=== PATIENT | male | born 1960 | race Caucasian/White ===

== ENCOUNTER → 2017-12-04 | Outpatient (CLI) | payer BC | END | disposition home or self-care (01) | LOC: LABWHC1 15:37 | PROVIDERS: ATTEND Orthopaedic Surgery | DX: Z01.812 Encounter for preprocedural laboratory examination (principal) | CPT/HCPCS: 87070 ==

== ENCOUNTER → 2017-12-12 | Outpatient (CLI) | payer BC ==
[2017-12-12 16:34] LABS: ALT 35 U/L (21-72); AST 33 U/L (17-59); Albumin 4.3 g/dL (3.5-5.0); Alkaline Phosphatase 85 U/L (38-126); Anion Gap 11 mmol/L; Blood Urea Nitrogen 12 mg/dL (9-20); Calcium 9.4 mg/dL (8.4-10.2); Carbon Dioxide 31 mmol/L (22-30); Chloride 101 mmol/L (98-107); Glucose 83 mg/dL (74-99); Potassium 4.3 mmol/L (3.5-5.1); Sodium 143 mmol/L (137-145)
[2017-12-12 18:41] LABS: Basophils % (A) 1 %; Eosinophils # (A) 0.1 k/uL (0-0.7); Eosinophils % (A) 2 %; HCT 41.9 % (39.0-53.0); HGB 14.1 gm/dL (13.0-17.5); Lymphocytes # (A) 1.4 k/uL (1.0-4.8); Lymphocytes % (A) 26 %; MCHC 33.7 g/dL (31.0-37.0); MCV 103.9 fL (80.0-100.0); Macrocytosis Slight; Mean Platelet Volume 8.4; Monocytes # (A) 0.3 k/uL (0-1.0); Monocytes % (A) 6 %; Neutrophils # (A) 3.5 k/uL (1.3-7.7); Neutrophils % (A) 64 %; Platelet Count 180 k/uL (150-450); RBC 4.03 m/uL (4.30-5.90); RDW 12.7 % (11.5-15.5); WBC 5.5 k/uL (3.8-10.6)
== END | disposition home or self-care (01) ==
LOC: LABPAT 16:04
PROVIDERS: ATTEND Orthopaedic Surgery
DX: Z01.812 Encounter for preprocedural laboratory examination (principal); M16.11 Unilateral primary osteoarthritis, right hip
CPT/HCPCS: 36415; 80053; 85025; 86850; 86900; 86901

== ENCOUNTER 2017-12-22 05:35 | Inpatient (IN) | payer BC ==
[2017-12-11 12:56] VITALS: BMI 23.7
--- NOTE | 2017-12-21 13:32 | HP ---
HISTORY AND PHYSICAL REASON FOR ADMISSION: Surgery scheduled for 12/22/2017 HISTORY OF PRESENT ILLNESS: Pedro Gonzales is a 57-year-old patient seen with symptomatic right hip osteoarthritis. After having treatment options discussed, he elected to proceed with direct anterior right total hip arthroplasty. Consent regarding the procedure was obtained. Medical clearance was provided by Dr. Cristian Valero. PAST MEDICAL HISTORY: Hypertension. PAST SURGICAL HISTORY: Noncontributory. MEDICATIONS: Vergas. ALLERGIES: None reported. SOCIAL HISTORY: The patient smokes cigarettes daily. PHYSICAL EXAMINATION: Physical evaluation of the right hip, there is very limited range of motion with severe pain, diffuse tenderness. Positive hip impingement sign. Straight leg raise is negative. Right lower extremity is approximately 1 inch shorter than left. Distal neurovascular exam intact. RADIOGRAPHS: Radiographs of the right hip reveals severe osteoarthritis. IMPRESSION: 1. Right hip osteoarthritis. 2. Hypertension. 3. Tobacco use. PLAN: Direct anterior right total hip arthroplasty. Surgery 12/22/2017. MMODL / IJN: [id number] /
[~2017-12-22 05:35] MED LIST: ACETAMINOPHEN TAB 500 MG TAB PO ONE; MELOXICAM 7.5 MG TAB PO ONE; TRANEXAMIC ACID 1,000 MG in SODIUM CHLORIDE 0.9% 50 ML IVPB ONE; ceFAZolin IN SWFI 2 GM/20 ML SYRINGE IVP ONE
[2017-12-22] MEDS ORDERED: DEXAMETHASONE SOD PHOSPHATE 10 MG/ML 1 ML VIAL IV ONE (06:05)
[2017-12-22] MEDS ORDERED: LIDOCAINE 1% 20 ML VIAL (10MG/ML) FOR IV START INTRADERMA PRN (06:05)
[2017-12-22] MEDS ORDERED: MIDAZOLAM 2 MG/2 ML VIAL IV PRN (06:05)
[2017-12-22] MEDS ORDERED: MORPHINE SULFATE 4 MG/ML SYRINGE IV PRN (06:05)
[2017-12-22] MEDS ORDERED: ONDANSETRON 4 MG/2 ML VIAL IVP ONE (06:05)
[2017-12-22] MEDS ORDERED: LACTATED RINGERS 1,000 ML IV SCH (06:05)
[2017-12-22] MEDS ORDERED: ROPIVACAINE 246.25 MG, EPINEPHrine 0.5 MG, KETOROLAC 30 MG, cloNIDine HCL/PF 80 MCG, WA... MISCELLANE ONE ×5 (07:23)
[2017-12-22] MEDS ORDERED: fentaNYL (PF) 50 MCG/ML 2 ML AMP ONE (07:28)
[2017-12-22] MEDS ORDERED: TRANEXAMIC ACID 1,000 MG/10 ML VIAL ONE (07:28)
[2017-12-22] MEDS ORDERED: LIDOCAINE 1% INJ 10MG/ML (20 ML MDV) ONE (07:28)
[2017-12-22] MEDS ORDERED: MIDAZOLAM 2 MG/2 ML VIAL ONE (07:28)
[2017-12-22] MEDS ORDERED: PHENYLEPHRINE-0.9% NACL SYG 1 MG/10 ML SYRINGE ONE (07:28)
[2017-12-22] MEDS ORDERED: SODIUM CHLORIDE 0.9% 100 ML BAG ONE (07:28)
[2017-12-22] MEDS ORDERED: PROPOFOL 10 MG/ML 20 ML VIAL IV ONE (07:28)
[2017-12-22] MEDS ORDERED: LACTATED RINGERS 1,000 ML IV ONE (08:55)
[2017-12-22] MEDS ORDERED: NALOXONE 0.4 MG/ML 1 ML VIAL IV PRN (09:27)
[2017-12-22] MEDS ORDERED: HYDROcodone/APAP 7.5-325MG 1 EACH TAB PO PRN (09:27)
[2017-12-22] MEDS ORDERED: HYDROmorphone 1 MG/ML 1 ML SYRINGE IVP PRN (09:27)
[2017-12-22] MEDS ORDERED: hydrOXYzine PAMOATE 25 MG CAP PO PRN (09:27)
[2017-12-22] MEDS ORDERED: ONDANSETRON 4 MG/2 ML VIAL IVP PRN (09:27)
[2017-12-22] MEDS ORDERED: HYDROmorphone 0.5 MG/0.5 ML SYRINGE IVP PRN (09:27)
--- NOTE | 2017-12-22 09:27 | P.OP ---
Date of Procedure: 12/22/17 Preoperative Diagnosis: Right hip osteoarthritis Postoperative Diagnosis: Right hip osteoarthritis Procedure(s) Performed: Direct anterior right total hip arthroplasty Implants: 1. Depuy Corail KA size 14 standard collar pressfit femoral stem 2. Depuy pinnacle 64 mm press-fit acetabular shell 3. Depuy pinnacle +4 neutral polyethylene acetabular liner 36 mm ID 64 mm OD 4. Biolox delta ceramic femoral head +12 36 mm Anesthesia: local, spinal Surgeon: Scott Parish Estimated Blood Loss (ml): 250 Pathology: other (Femoral head) Condition: stable Disposition: PACU Indications for Procedure: 57-year-old patient seen with symptomatic right hip osteoarthritis. After treatment options were discussed, he elected to proceed with total hip arthroplasty. Operative Findings: see description of procedure Description of Procedure: The patient was taken to the operative suite. Patient underwent a spinal anesthetic by the department of anesthesia. Patient was then transferred to the [place] table. Patient was given preoperative IV antibiotics and TXA. Both lower extremities were placed in standard leg spars. The hip was then prepped and draped in the normal sterile orthopedic fashion. A standard anterior incision was made beginning 3 cm lateral and 1 cm distal to the ASIS extending 10 cm. Dissection was then carried down through the subcutaneous soft tissues down to the fascia overlying the tensor fascia kelvin. An incision was now made through the fascia. Careful dissection was taken down exposing the tensor fascia kelvin muscle. A Cobra retractor was now placed along the medial femoral neck and a second one along the lateral femoral neck. The venous circumflex vessels were now identified, cauterized and clipped. We identified the anterior hip capsule. An incision was made through the hip capsule along the lateral border. Tag sutures were then placed along the anterior capsule and lateral capsule. We then performed a capsulotomy. Retractors were now placed around the femoral neck itself. A Cobra retractor was now placed along the anterior acetabulum. Good exposure was now noted of the femoral head/neck complex. Residual labrum was debrided out. We placed the extremity into 3 turns of fine traction. We were then able to introduce a skid in between the femoral head and acetabulum. A placed a awl into the femoral head. We took 2 turns of traction off the extremity. Rotation was now released. The femoral head was then dislocated without difficulty. Additional releasing was performed of the capsule. The head was then reduced. All traction was released. A femoral neck cut was now made with a sagittal saw. It was completed with an osteotome at the lateral neck area. The femoral head was now removed without difficulty. The extremity was now rotated to 60 of external rotation. It was locked in position. Residual labrum was now debrided out. Serial reaming was performed of the acetabulum. Once we reached the appropriate size and a trial was position and fit nicely. The appropriate size was now chosen opened and made available. The wound was irrigated with pulse lavage mechanical irrigation. The acetabular shell was introduced into the acetabulum without difficulty. The C-arm/fluoroscopy was now brought into the operative field. We made sure we had a true AP pelvic view. We now under direct C-arm/fluoroscopy introduced into the acetabular component with appropriate version and inclination. It was well seated and stable. The C-arm was pulled back. An appropriate liner was introduced and clicked into position. It was felt to be stable. At this point retractors were removed. The extremity was now placed into 120 external rotation with no traction. The leg was now dropped to the ground and adducted. Appropriate retractors were now positioned along the proximal femur. We also placed our femoral look into position. Additional capsular releasing was performed to gain access to the proximal femur. We now used a box osteotome. A canal finder was now utilized. Serial broaching was now performed until we reached the appropriate size with good overall rotational stability. Appropriate calcar planing was performed. A trial head/neck was placed into position. The hip was now reduced. The C-arm /fluoroscopy was brought back into the operative field. A spot film was obtained of the nonoperative hip. A spot film was obtained of the trial components. The extremity seemed short with of the significant ligament discrepancy. I dislocated the hip. I removed her standard polyethylene liner and placed and a +4 liner. I now placed a new trial head neck. The hip was reduced. The C-arm was brought into the operative field. We again obtained a spot film. Overlays were performed, we noted good overall alignment and positioning for determining leg length. The C-arm/fluoroscopy was pulled back. Retractors were repositioned and the hip was dislocated. The leg was again taken down to the ground and adducted. Appropriate retractors were repositioned as well as the femoral hook. All trial components were removed. The wound was irrigated with pulse lavage mechanical irrigation. The deep soft tissues were infiltrated local analgesic. The femoral implant was opened along with the femoral head. The femoral implant was introduced with good purchase and fixation noted. The femoral head was introduced with good positioning and fixation noted. Retractors were now removed. The hip was now reduced. There appeared be good positioning of the hip. A spot film was obtained intraoperatively to document this. Bipolar cautery had been utilized intermittently through the procedure for hemostasis. The wound was irrigated copiously with pulse lavage mechanical irrigation. A second gram of TXA was given. The fascia was repaired with Vicryl suture. The subcutaneous soft tissues were repaired in layers with Vicryl suture. The skin was approximated with pernio/Dermabond. Sterile dressings were applied. Patient was then awakened, transferred to a bed and taken to recovery in stable condition.
--- NOTE | 2017-12-22 10:29 | FL ---
Fluoroscopy HISTORY: Right hip arthroplasty 23 seconds fluoroscopy time supplied to the referring clinician. 1 intraoperative C-arm images docum ent the procedure. See dictated report from orthopedic surgery.
[2017-12-22] MEDS: HYDROmorphone 0.5 MG/0.5 ML SYRINGE IVP PRN ×3 (10:56→22:43)
--- NOTE | 2017-12-22 10:56 | XR ---
Limited right hip HISTORY: Right hip arthroplasty 1 intraoperative C-arm image documents the procedure
[2017-12-22] MEDS: LACTATED RINGERS 1,000 ML IV SCH ×2 (11:03→20:20)
--- NOTE | 2017-12-22 13:09 | CONS ---
CONSULTATION DATE OF CONSULTATION: 12/22/2017 REASON FOR CONSULTATION: Medical management requested by Dr. Parish. CONSULTATION: This is a 57-year-old patient of Dr. Valero who has undergone a right total hip arthroplasty. Postprocedure pain is controlled. No nausea or vomiting. No chest pain. The patient denies any cardiac history. Did tolerate his breakfast. Patient's daughter at the bedside. Chronic stable medical conditions include osteoarthritis that also includes his right knee and other joints. constipation and patient has been losing weight by eating healthy and patient also is nicotine dependence/smoker. REVIEW OF SYSTEMS: CONSTITUTIONAL: None. HEENT: None. RESPIRATORY: None. CARDIOVASCULAR: None. GASTROINTESTINAL: As above. GENITOURINARY: None. MUSCULOSKELETAL: Arthritic pain in joints including right knee. DERMATOLOGICAL: None. HEMATOLOGIC: None. LYMPHATIC: None. PSYCHIATRY: None. NEUROLOGICAL: None. PAST MEDICAL HISTORY: Osteoarthritis, nicotine dependence, constipation, osteoarthritis. PAST SURGICAL HISTORY: Cardiac catheterization, colonoscopy. SOCIAL HISTORY: Patient lives with his son. Works in [employer]. Smokes less than a pack a day for over 20 years. FAMILY HISTORY: Family history of cancer, type unknown. HOME MEDICATIONS: [place] 5 one tablet p.o. t.i.d. p.r.n. ALLERGIES: None. PHYSICAL EXAMINATION: On examination, temperature 97.4, pulse 60, respiration 14, blood pressure 123/59, pulse ox 93% on room air. GENERAL APPEARANCE: Lying in bed, comfortable, awake. EYES: Pupils equal. Conjunctivae normal. HENT: External appearance of the nose and ears normal. Oral cavity normal. NECK: JVD not raised. Mass not palpable. RESPIRATORY: Effort normal. Lungs are clear. CARDIOVASCULAR: First and second sounds normal. No edema. ABDOMEN: Soft, nontender. Liver and spleen not palpable. LYMPHATIC: No lymph node palpable in the neck and axillae. PSYCHIATRY: Alert and oriented x3. Mood and affect normal. NEUROLOGICAL: Pupils equal. Cranial nerves grossly intact. Power and sensation grossly intact. MUSCULOSKELETAL: Dressing over the right hip. Some evidence of osteoarthritis in the knees. INVESTIGATIONS: Blood work from 12/12/2017 shows hemoglobin 14.1, platelets of 180. ASSESSMENT: 1. Right total hip arthroplasty. 2. Primary osteoarthritis especially of the knees. 3. Chronic constipation probably a side effect of pain medication/narcotic. 4. Chronic nicotine dependence, patient is a cigarette smoker. PLAN: Care was discussed the patient. The patient is careful about his diet. He is planning to probably get his knee assessed for surgery. The patient did take laxative of fiber for his constipation. The patient is counseled against smoking and will be given a nicotine patch. Care was discussed. Thank you, Dr. Parish. MARK / MELANY: [id number] /
[2017-12-22] MEDS: traMADol 50 MG TAB PO SCH ×3 (15:11→22:45)
[2017-12-22] MEDS: NICOTINE 14MG/24HR PATCH TRANSDERM SCH (15:25)
[2017-12-22] MEDS: ceFAZolin IN SWFI 2 GM/20 ML SYRINGE IVP SCH (15:29)
[2017-12-22 16:03] VITALS: RESP 16
[2017-12-22] MEDS: HYDROcodone/APAP 7.5-325MG 1 EACH TAB PO PRN (20:20)
[2017-12-22] MEDS ORDERED: SENNOSIDES-DOCUSATE SODIUM 1 EACH TAB PO SCH (21:00)
[2017-12-23] MEDS: ceFAZolin IN SWFI 2 GM/20 ML SYRINGE IVP SCH (00:49)
[2017-12-23] MEDS: HYDROcodone/APAP 7.5-325MG 1 EACH TAB PO PRN ×2 (03:30→12:32)
[2017-12-23] MEDS: traMADol 50 MG TAB PO SCH ×2 (07:49→12:37)
[2017-12-23] MEDS: NICOTINE 14MG/24HR PATCH TRANSDERM SCH (07:50)
[2017-12-23 08:04] LABS: Basophils % (A) 0 %; Eosinophils % (A) 0 %; HCT 34.8 % (39.0-53.0); HGB 11.7 gm/dL (13.0-17.5); Lymphocytes # (A) 0.7 k/uL (1.0-4.8); Lymphocytes % (A) 7 %; MCH 35.1 pg (25.0-35.0); MCHC 33.5 g/dL (31.0-37.0); MCV 104.8 fL (80.0-100.0); Macrocytosis Slight; Mean Platelet Volume 8.7; Monocytes # (A) 0.5 k/uL (0-1.0); Monocytes % (A) 6 %; Neutrophils # (A) 8.1 k/uL (1.3-7.7); Neutrophils % (A) 86 %; Platelet Count 146 k/uL (150-450); RBC 3.32 m/uL (4.30-5.90); RDW 12.9 % (11.5-15.5); WBC 9.4 k/uL (3.8-10.6)
[2017-12-23 08:22] VITALS: BP 124/71; PULSE 87; TEMP 97.9
[2017-12-23] MEDS ORDERED: ENOXAPARIN 40 MG/0.4 ML SYRINGE SQ SCH (09:00)
[2017-12-23] MEDS ORDERED: FAMOTIDINE 20 MG TAB PO SCH (09:00)
[2017-12-23] MEDS ORDERED: MELOXICAM 7.5 MG TAB PO SCH (09:00)
--- NOTE | 2017-12-23 10:46 | P.PN ---
Subjective Progress Note Date: 12/23/17 Principal diagnosis: Status post right total hip arthroplasty Patient seen today resting in his hospital bed, he appears comfortable. Exam bleeding well with therapy. He is urinating on his own. He denies any headaches, lightheadedness, chest pain or shortness of breath. Objective - Vital Signs Vital signs: Vital Signs Temp 97.9 F 12/23/17 07:45 Pulse 87 12/23/17 07:45 Resp 16 12/23/17 07:45 BP 124/71 12/23/17 07:45 Pulse Ox 96 12/23/17 07:45 Intake & Output 12/22/17 12/23/17 12/23/17 18:59 06:59 18:59 Intake Total 1000 1120 Output Total 250 Balance 750 1120 Weight 79.379 kg Intake: IV 1000 Intake, IV Titration 640 Amount Lactated Ringers 1,000 ml 640 @ 80 mls/hr IV .[id number] TALHA Rx#:[id number] Oral 480 Output: Estimated Blood Loss 250 Other: Voiding Method Toilet # Voids 3 3 - Exam Right lower extremity: Incision is clean, dry, and intact. The prineo tape is in good condition. There is minimal soft tissue swelling and ecchymosis surrounding the medial and lateral aspects of the incision. Calf is soft, no tenderness with palpation. Plantar flexion, dorsiflexion, EHL, FHL are intact. Sensory exam to light touch throughout the extremity is intact, dorsal pedis pulses 2+. - Labs CBC & Chem 7: 12/23/17 07:29 Labs: Abnormal Lab Results - Last 24 Hours (Table) 12/23/17 Range/Units 07:29 RBC 3.32 L (4.30-5.90) m/uL Hgb 11.7 L (13.0-17.5) gm/dL Hct 34.8 L (39.0-53.0) % MCV 104.8 H (80.0-100.0) fL MCH 35.1 H (25.0-35.0) pg Plt Count 146 L (150-450) k/uL Neutrophils # 8.1 H (1.3-7.7) k/uL Lymphocytes # 0.7 L (1.0-4.8) k/uL Assessment and Plan Plan: Assessment: 1. Postop day 1 status post right total hip arthroplasty Plan: Pain control, we'll discharge home on oral medication GI and DVT prophylaxis, utilizing aspirin 325 mg twice a day Home therapy and nursing after discharge Wound care instructions were discussed Medical recommendations Discharge planning: Patient will likely be discharged home today Time with Patient: Less than 30
[2017-12-23] MEDS: LACTATED RINGERS 1,000 ML IV SCH (10:57)
--- NOTE | 2017-12-23 14:11 | P.DS ---
Providers Date of admission: 12/22/17 05:35 Expected date of discharge: 12/23/17 Attending physician: Scott Parish Consults: 12/22/17 09:27 Consult Physician Routine Consulting Provider: Cristian Valero Consult Reason/Comments: Medical management Do you want consulting provider notified?: Yes 12/22/17 10:35 Consult Physician Routine Consulting Provider: Orestes Guadalupe Consult Reason/Comments: medical management Do you want consulting provider notified?: Yes Primary care physician: Cristian Valero [facility] Course: Date of admission: 12/22/2017 Date of discharge: 12/23/2017 Admission diagnosis: Status post right total hip arthroplasty Discharge diagnosis: Same Attending physician: Dr. Parish Surgical procedures: Right total hip arthroplasty Brief history: Patient is a 57-year-old male with a history of progressive primary right hip osteoarthritis. At this point patient has failed conservative treatment measures and has opted to proceed with a elective right total hip arthroplasty. Hospital course: Details of patient's surgery can be found in operative report. Patient tolerated the procedure well and was subsequently transported to orthopedic floor. Patient's orthopeidc and medical care was provided daily. Patient had daily laboratory tests performed for evaluation of overall blood counts. Patient had daily physical therapy to include strengthening range of motion as well as education with walker ambulation. Patient was treated with Lovenox for their postoperative DVT prophylaxis during their inpatient stay. Patient was noted to have a relatively uneventful postoperative course. Patient reported satisfactory pain control with oral pain medications by postoperative day 0. Patient showed satisfactory progress with physical therapy. Patient moved steadily through the program and had no difficulty meeting the goals by postoperative day 1. Given patient's otherwise satisfactory course and having met physical therapy goals, plan is to discharge patient home on postoperative day 1. Discharge condition/disposition: Patient will be discharged home in stable condition. Discharge medications: Instructions are given on resumption of patient's normal daily medications per primary care recommendation, in addition patient will be prescribed . Discharge instructions: 1. Wound care and infection precautions, keep incision dry and covered while showering, no lotions, creams, moisturizers. No soaking, tubs, pools, hottubs. Do not scrub over the incision. 2. Weight-bear as tolerated with walker / cane until follow-up. 3. Ice and elevate when necessary. Do not exceed 20 minutes per hour with ice pack. 4. Utilize compression sleeve until seen at first follow up appointment. 5. Visiting nursing care. 6. Home physical therapy 7. Pain meds and anticoagulants per prescription. 8. Pain medication has potential to cause constipation. Increase oral fluid and fiber intake. Contact primary care provider if you have not had a bowel movement within 48 hours after discharge 9. No anti-inflammatory medication until discussed at first post operative visit, this including Motrin, Aleve, Mobic, Diclofenac 10. Follow up in office at 2 weeks postop with Clyde Nesbitt PA-C 11. Follow up with your primary care doctor 7-10 days after discharge. 12. Contact [facility] with any questions, . Procedures: Right total hip arthroplasty Patient Condition at Discharge: Good Plan - Discharge Summary Discharge Rx Participant: Yes New Discharge Prescriptions: New Aspirin 325 mg PO BID #60 tab Docusate [Colace] 100 mg PO DAILY #30 capsule HYDROcodone/APAP 7.5-325MG [[place] 7.5] 1 - 2 each PO Q6HR PRN #60 tab PRN Reason: Pain traMADol HCl [Ultram] 50 mg PO Q6H PRN #40 tab PRN Reason: Pain Discharge Medication List Aspirin 325 mg PO BID #60 tab 12/23/17 [Rx] Docusate [Colace] 100 mg PO DAILY #30 capsule 12/23/17 [Rx] HYDROcodone/APAP 7.5-325MG [Elton 7.5] 1 - 2 each PO Q6HR PRN #60 tab 12/23/17 [ Rx] traMADol HCl [Ultram] 50 mg PO Q6H PRN #40 tab 12/23/17 [Rx] Follow up Appointment(s)/Referral(s): Cristian Valero MD [Primary Care Provider] - 12/30/17 4:30 pm Jamar Nesbitt PAC [PHYSICIAN [employer]] - 01/07/18 2:50 pm Patient Instructions/Handouts: Anterior Hip Replacement (DC) Activity/Diet/Wound Care/Special Instructions: [facility] - [phone] [facility] - [phone] - will deliver to bedside prior to discharge. Orthopedic Discharge Instructions: 1. Wound care and infection precautions, keep incision dry and covered while showering, no lotions, creams, moisturizers. No soaking, pools, hot tubs. Do not scrub over incision. 2. Weight-bear as tolerated with walker / cane until follow-up. 3. Ice and elevate when necessary. Do not exceed 20 minutes per hour with ice pack. 4. Utilize compression sleeve until seen at first follow up appointment. 5. Visiting nursing care. 6. Home physical therapy. 7. Pain meds and anticoagulants per prescription. 8. Pain medication has potential to cause constipation. Increase oral fluid and fiber intake. Contact primary care provider if you have not had a bowel movement within 48 hours after discharge. 9. No anti-inflammatory medication until discussed at first post operative visit, this including Motrin, Aleve, Mobic, Diclofenac. 10. Follow up in office at 2 weeks postop with Clyde Nesbitt PA-C 11. Follow up with your primary care doctor 7-10 days after discharge. 12. Contact [facility] with any questions, . Discharge Disposition: HOME WITH HOME HEALTH SERVICES
--- NOTE | 2017-12-23 23:48 | PN ---
PROGRESS NOTE DATE OF SERVICE: 12/23/2017 PRESENTING COMPLAINT: Right hip surgery. INTERVAL HISTORY: The patient is doing well. Pain is controlled. Did tolerate his meal. No nausea, vomiting, did work with Therapy. REVIEW OF SYSTEMS: Done for constitutional, cardiovascular, GI, pulmonary, musculoskeletal; relevant findings as above. CURRENT MEDICATIONS: Reviewed. EXAMINATION: Temperature 97.9, pulse 87, respirations 16, blood pressure 124/71, pulse ox 96% on room air. GENERAL APPEARANCE: Sitting up, comfortable. EYES: Pupils equal. Conjunctivae normal. HEENT: External appearance of nose and ears normal. Oral cavity normal. NECK: JVD not raised. Mass not palpable. RESPIRATORY: Effort normal. Lungs are clear. CARDIOVASCULAR: First and second sounds normal. No edema. ABDOMEN: Soft, nontender. Liver and spleen not palpable. PSYCHIATRY: Alert and oriented x3. Mood and affect were normal. INVESTIGATIONS: Hemoglobin 11.7. ASSESSMENT: 1. Right total hip arthroplasty. 2. Acute postoperative blood loss as blood loss anemia as expected from surgery. 3. Primary osteoarthritis, especially of the knees. 4. Chronic constipation, probably a side effect of pain medication/narcotics. 5. Chronic nicotine dependence in a cigarette smoking smoker. PLAN: Continue current medication and treatment plan. The patient may take [id number] iron supplements. MMODL / IJN: [id number] /
== END 2017-12-23 13:50 | disposition home health service (06) | DRG 470 ==
LOC: 2ORMAIN 05:35 → 3SUR 09:30
PROVIDERS: ADMIT Orthopaedic Surgery; ATTEND Orthopaedic Surgery
PROC: 0SR904A Replacement of Right Hip Joint with Ceramic on Polyethylene Synthetic Substitute, Uncemented, Open Approach (ICD-10-PCS; principal; 2017-12-22 07:30)
DX: M16.11 Unilateral primary osteoarthritis, right hip (principal); D62 Acute posthemorrhagic anemia; F17.210 Nicotine dependence, cigarettes, uncomplicated; I10 Essential (primary) hypertension; K59.03 Drug induced constipation; T40.605A Adverse effect of unspecified narcotics, initial encounter; M17.0 Bilateral primary osteoarthritis of knee; Z79.899 Other long term (current) drug therapy; Z80.9 Family history of malignant neoplasm, unspecified; Z82.49 Family history of ischemic heart disease and other diseases of the circulatory system; Y92.009 Unspecified place in unspecified non-institutional (private) residence as the place of occurrence of the external cause
CPT/HCPCS: 73501; 85025; 86850; 86900; 86901; 88300

== ENCOUNTER → 2020-02-22 | Outpatient (CLI) | payer BC ==
--- NOTE | 2020-02-22 10:15 | P.STRESS ---
- Stress Test Note Stress Test Results/Findings: Exam Performed: stress echo exercise with con Exam Date: 02/22/20 Reason for Exam: PALPITATIONS Height: 6 ft 1 in Weight: 80.739 kg Protocol: EXERCISE STRESS ECHO Stage: II Duration of Exercise: 6:00 Resting Heart Rate: 97 Resting Blood Pressure: 137/63 Maximum Achieved Heart Rate: 148 Maximum Achieved Blood Pressure: 207/84 85% PMHR: 138 100% PMHR: 162 METS: 7.1 Technologist Comment: Stress Test Results/Findings: This is a 59-year-old gentleman with history of hypertension, family history of ischemic heart disease. Smoking who is being evaluated for symptoms of shortness of breath and palpitations. Stress data Baseline EKG showed sinus rhythm with normal MA and QRS QRS duration. Occasional PVCs were noted. Patient blood pressure at rest is 137/63 with pulse rate of 97. Patient walked on the Shaq protocol for about 6 minutes achieving a maximum heart rate of 148 with a blood pressure of 207/84 at peak. EKGs taken during and after x-ray did not reveal any changes of ischemia. Patient continued to have frequent PVCs and post x-rays.. The test was stopped because of fatigue and also 85%. Heart rate was achieved. No complaints of chest pain. Echo data: Baseline echo images showed normal wall motion and thickening. Exercise echo images showed generalized hypokinesia with ejection fraction dropping to probably about 45%, compared to normal ejection fraction at rest. In the post x-rays. There appears to be normal wall motion and thickening. Final impression #1. Negative stress test #2. Abnormal stress echo. With deterioration in LV function with generalized hypokinesia with stress. This could be related to hypertensive response to exercise, although triple-vessel disease needs to be ruled out. #3. Patient did not experience any chest pain. #4. Patient may need further evaluation
== END | disposition home or self-care (01) ==
LOC: RADNMMAIN 08:56
PROVIDERS: ATTEND Family Medicine
DX: R00.2 Palpitations (principal)
CPT/HCPCS: 93351; Q9950

== ENCOUNTER → 2020-10-13 | Outpatient (CLI) | payer BC ==
[2020-10-13 23:18] LABS: Basophils # (A) 0.06 X 10*3/uL (0.00-0.10); Basophils % (A) 0.9 %; Eosinophils # (A) 0.09 X 10*3/uL (0.04-0.35); Eosinophils % (A) 1.4 %; Lymphocytes # (A) 2.08 X 10*3/uL (0.90-5.00); Lymphocytes % (A) 32.7 %; MCH 35.4 pg (27.0-32.0); MCHC 34.1 g/dL (32.0-37.0); MCV 103.5 fL (80.0-97.0); Mean Platelet Volume 11.3 fL (9.5-12.2); Monocytes # (A) 0.52 X 10*3/uL (0.20-1.00); Monocytes % (A) 8.2 %; Neutrophils % (A) 56.6 %; Platelet Count 161 X 10*3/uL (140-440); RBC 3.96 X 10*6/uL (4.40-5.60); RDW 12.6 % (11.5-14.5); WBC 6.36 X 10*3/uL (4.50-10.00)
[2020-10-14 01:19] LABS: Hemoglobin A1C 5.3 % (4.0-6.0)
[2020-10-14 03:38] LABS: Albumin 4.5 g/dL (3.80-4.90); Albumin/Globulin Ratio 2.14 (1.60-3.17); BUN/Creat Ratio 12.22 Ratio (12.00-20.00); Chol/HDL Ratio 1.93; Globulin 2.1 g/dL (1.6-3.3); LDL Cholesterol,Calculated 49.6 mg/dL (0.0-131.0); Non-African American GFR(CKD) 93.2 (60.0-200.0); Potassium 4.4 mmol/L (3.5-5.5); Total Bilirubin 1.6 mg/dL (0.2-1.2); Total Protein 6.6 g/dL (6.2-8.2); VLDL Calculation 13.4 mg/dL (5.00-40.00)
== END | disposition home or self-care (01) ==
LOC: LABWHC1 14:49
PROVIDERS: ATTEND Family Medicine
DX: Z00.00 Encounter for general adult medical examination without abnormal findings (principal); Z12.5 Encounter for screening for malignant neoplasm of prostate; E78.5 Hyperlipidemia, unspecified
CPT/HCPCS: 80061; 80053; 82550; 84443; 85025; 83036; 36415; G0103

== ENCOUNTER → 2020-10-16 | Outpatient (CLI) | payer BC ==
[2020-10-16 15:39] LABS: Cholesterol 151 mg/dL (0-200); Triglycerides <50.0 mg/dL (0.0-149.0)
== END | disposition home or self-care (01) ==
LOC: LABWHC1 09:23
PROVIDERS: ATTEND Nurse Practitioner Adult Health
DX: E78.5 Hyperlipidemia, unspecified (principal)
CPT/HCPCS: 36415; 80061

== ENCOUNTER 2021-05-25 02:23 | Emergency (ER) | payer BC ==
[2021-05-25] MEDS ORDERED: SODIUM CHLORIDE 0.9% 1,000 ML IV STA ×2 (02:56)
[2021-05-25] MEDS ORDERED: KETOROLAC 15 MG/ML 1 ML VIAL IVP STA (02:56)
[2021-05-25] MEDS ORDERED: ACETAMINOPHEN TAB 500 MG TAB PO STA (02:56)
[2021-05-25] MEDS ORDERED: DEXAMETHASONE SOD PHOSPHATE 10 MG/ML 1 ML VIAL IVP STA (02:56)
[2021-05-25] MEDS ORDERED: ALBUTEROL HFA INHALER INHALATION STA (02:56)
--- NOTE | 2021-05-25 02:57 | ED ---
SOB HPI - General Chief Complaint: Shortness of Breath Stated Complaint: Difficulty Breathing, Covid+ Time Seen by Provider: 05/25/21 02:55 Source: patient, RN notes reviewed, old records reviewed Mode of arrival: ambulatory Limitations: no limitations - History of Present Illness Initial Comments: This is a 60-year-old male presented today for evaluation of known positive coronavirus. Patient has some chest pain weakness and shortness of breath. She has no history of coronavirus and has difficulty breathing just prior to arrival. No current chest pain positive for fevers positive bodyaches MD Complaint: shortness of breath, cough, chest pain, pain with inspiration, anxiety -: days(s) Severity: severe Severity scale (1-10): 8 Consistency: constant Improves With: oxygen, rest Worsens With: exertion, movement Known History Of: COPD Context: recent URI, recent illness Associated Symptoms: chest pain, pain with inspiration, fever, cough Treatments Prior to Arrival: none - Related Data Previous Rx's Medication Instructions Recorded Aspirin 325 mg PO BID #60 tab 12/23/17 Docusate [Colace] 100 mg PO DAILY #30 capsule 12/23/17 HYDROcodone/APAP 7.5-325MG [[place] 1 - 2 each PO Q6HR PRN #60 tab 12/23/17 7.5] traMADol HCl [Ultram] 50 mg PO Q6H PRN #40 tab 12/23/17 Allergies Allergy/AdvReac Type Severity Reaction Status Date / Time No Known Allergies Allergy Verified 05/25/21 02:40 Review of Systems ROS Statement: Those systems with pertinent positive or pertinent negative responses have been documented in the HPI. ROS Other: All systems not noted in ROS Statement are negative. Past Medical History Past Medical History: Hypertension, Osteoarthritis (OA) History of Any Multi-Drug Resistant Organisms: None Reported Past Surgical History: Heart Catheterization, Joint Replacement, Orthopedic Surgery Additional Past Surgical History / Comment(s): COLONOSCOPY Past Anesthesia/Blood Transfusion Reactions: No Reported Reaction Past Psychological History: No Psychological Hx Reported Smoking Status: Current every day smoker Past Alcohol Use History: Occasional Past Drug Use History: None Reported - Past Family History Father Family Medical History: Cancer General Exam Limitations: no limitations General appearance: alert, in no apparent distress Head exam: Present: atraumatic, normocephalic, normal inspection Eye exam: Present: normal appearance, PERRL, EOMI. Absent: scleral icterus, conjunctival injection, periorbital swelling ENT exam: Present: normal exam, mucous membranes moist Neck exam: Present: normal inspection. Absent: tenderness, meningismus, lymphadenopathy Respiratory exam: Present: normal lung sounds bilaterally. Absent: respiratory distress, wheezes, rales, rhonchi, stridor Cardiovascular Exam: Present: regular rate, normal rhythm, normal heart sounds. Absent: systolic murmur, diastolic murmur, rubs, gallop, clicks GI/Abdominal exam: Present: soft, normal bowel sounds. Absent: distended, tenderness, guarding, rebound, rigid Extremities exam: Present: normal inspection, full ROM, normal capillary refill. Absent: tenderness, pedal edema, joint swelling, calf tenderness Back exam: Present: normal inspection Neurological exam: Present: alert, oriented X3, CN II-XII intact Psychiatric exam: Present: normal affect, normal mood Skin exam: Present: warm, dry, intact, normal color. Absent: rash Course Vital Signs 05/25/21 05/25/21 05/25/21 02:36 03:00 03:40 Temperature 98.6 F Pulse Rate 104 H 76 Respiratory 24 25 H 16 Rate Blood Pressure 111/74 113/69 O2 Sat by Pulse 97 96 Oximetry 05/25/21 05/25/21 05:33 06:57 Temperature 98.9 F 98.8 F Pulse Rate 75 78 Respiratory 18 16 Rate Blood Pressure 124/81 128/72 O2 Sat by Pulse 98 95 Oximetry - Reevaluation(s) Reevaluation #1: Medical record is reviewed Patient symptoms are improved here in the ER and remained improved Patient informed results and questions answered Medical Decision Making - Medical Decision Making 60 male to the emergency department for evaluation positive for coronavirus. Patient will be given antibiotics here in the ER is in no distress and can be discharged home - Lab Data Result diagrams: 05/25/21 03:16 05/25/21 03:16 Lab Results 05/25/21 05/25/21 05/25/21 Range/Units 03:16 03:16 03:16 WBC 3.9 (3.8-10.6) k/uL RBC 4.26 L (4.30-5.90) m/uL Hgb 15.5 (13.0-17.5) gm/dL Hct 43.8 (39.0-53.0) % MCV 102.8 H (80.0-100.0) fL MCH 36.4 H (25.0-35.0) pg MCHC 35.4 (31.0-37.0) g/dL RDW 13.8 (11.5-15.5) % Plt Count 124 L (150-450) k/uL MPV 10.3 Neutrophils % 71 % Lymphocytes % 20 % Monocytes % 7 % Eosinophils % 1 % Basophils % 1 % Neutrophils # 2.8 (1.3-7.7) k/uL Lymphocytes # 0.8 L (1.0-4.8) k/uL Monocytes # 0.3 (0-1.0) k/uL Eosinophils # 0.0 (0-0.7) k/uL Basophils # 0.0 (0-0.2) k/uL Macrocytosis Slight PT 10.0 (9.0-12.0) sec INR 0.9 (<1.2) APTT 23.5 (22.0-30.0) sec Sodium 136 L (137-145) mmol/L Potassium 2.9 L (3.5-5.1) mmol/L Chloride 101 (98-107) mmol/L Carbon Dioxide 26 (22-30) mmol/L Anion Gap 9 mmol/L BUN 10 (9-20) mg/dL Creatinine 0.83 (0.66-1.25) mg/dL Est GFR (CKD-EPI)AfAm >90 (>60 ml/min/1.73 sqM) Est GFR (CKD-EPI)NonAf >90 (>60 ml/min/1.73 sqM) Glucose 114 H (74-99) mg/dL Plasma Lactic Acid James (0.7-2.0) mmol/L Calcium 8.7 (8.4-10.2) mg/dL Magnesium 1.4 L (1.6-2.3) mg/dL Ferritin 1836.0 H (22.0-322.0) ng/mL Total Bilirubin 1.2 (0.2-1.3) mg/dL AST 54 (17-59) U/L ALT 29 (4-49) U/L Alkaline Phosphatase 130 H (38-126) U/L Lactate Dehydrogenase 446 (313-618) U/L C-Reactive Protein 0.8 (<1.0) mg/dL NT-Pro-B Natriuret Pep pg/mL Total Protein 7.1 (6.3-8.2) g/dL Albumin 3.8 (3.5-5.0) g/dL 05/25/21 05/25/21 Range/Units 03:16 03:16 WBC (3.8-10.6) k/uL RBC (4.30-5.90) m/uL Hgb (13.0-17.5) gm/dL Hct (39.0-53.0) % MCV (80.0-100.0) fL MCH (25.0-35.0) pg MCHC (31.0-37.0) g/dL RDW (11.5-15.5) % Plt Count (150-450) k/uL MPV Neutrophils % % Lymphocytes % % Monocytes % % Eosinophils % % Basophils % % Neutrophils # (1.3-7.7) k/uL Lymphocytes # (1.0-4.8) k/uL Monocytes # (0-1.0) k/uL Eosinophils # (0-0.7) k/uL Basophils # (0-0.2) k/uL Macrocytosis PT (9.0-12.0) sec INR (<1.2) APTT (22.0-30.0) sec Sodium (137-145) mmol/L Potassium (3.5-5.1) mmol/L Chloride (98-107) mmol/L Carbon Dioxide (22-30) mmol/L Anion Gap mmol/L BUN (9-20) mg/dL Creatinine (0.66-1.25) mg/dL Est GFR (CKD-EPI)AfAm (>60 ml/min/1.73 sqM) Est GFR (CKD-EPI)NonAf (>60 ml/min/1.73 sqM) Glucose (74-99) mg/dL Plasma Lactic Acid James 1.5 (0.7-2.0) mmol/L Calcium (8.4-10.2) mg/dL Magnesium (1.6-2.3) mg/dL Ferritin (22.0-322.0) ng/mL Total Bilirubin (0.2-1.3) mg/dL AST (17-59) U/L ALT (4-49) U/L Alkaline Phosphatase (38-126) U/L Lactate Dehydrogenase (313-618) U/L C-Reactive Protein (<1.0) mg/dL NT-Pro-B Natriuret Pep 330 pg/mL Total Protein (6.3-8.2) g/dL Albumin (3.5-5.0) g/dL - EKG Data -: EKG Interpreted by Me (EKG sinus rhythm 85, LA 180 QRS 88 QTc 460) - Radiology Data Radiology results: report reviewed (Chest x-rays negative for acute disease), image reviewed Disposition Clinical Impression: Coronavirus infection Disposition: HOME SELF-CARE Condition: Good Instructions (If sedation given, give patient instructions): Coronavirus Disease 2019 (COVID-19) Is patient prescribed a controlled substance at d/c from ED?: No Referrals: Cristian Valero MD [Primary Care Provider] - 1-2 days
--- NOTE | 2021-05-25 03:33 | XR ---
EXAMINATION TYPE: XR chest 1V portable DATE OF EXAM: 05/25/2021 COMPARISON: NONE HISTORY: Short of breath TECHNIQUE: Single view FINDINGS: Heart and mediastinum are normal. Lungs are clear. Diaphragm is normal. Bony thorax is inta ct. Thoracic aorta is atheromatous. There are chest leads. IMPRESSION: No active cardiopulmonary disease. Normal heart.
[2021-05-25 03:39] LABS: ALT 29 U/L (4-49); AST 54 U/L (17-59); African American GFR (CKD) >90 (>60 ml/min/1.73 sqM); Albumin 3.8 g/dL (3.5-5.0); Alkaline Phosphatase 130 U/L (38-126); Anion Gap 9 mmol/L; Blood Urea Nitrogen 10 mg/dL (9-20); C Reactive Protein 0.8 mg/dL (<1.0); Calcium 8.7 mg/dL (8.4-10.2); Carbon Dioxide 26 mmol/L (22-30); Chloride 101 mmol/L (98-107); Glucose 114 mg/dL (74-99); LDH 446 U/L (313-618); Magnesium 1.4 mg/dL (1.6-2.3); Non-African American GFR(CKD) >90 (>60 ml/min/1.73 sqM); Potassium 2.9 mmol/L (3.5-5.1); Sodium 136 mmol/L (137-145); Total Bilirubin 1.2 mg/dL (0.2-1.3); Total Protein 7.1 g/dL (6.3-8.2)
[2021-05-25 03:44] LABS: INR 0.9 (<1.2); Partial Thromboplastin Time 23.5 sec (22.0-30.0)
[2021-05-25 03:47] LABS: Basophils % (A) 1 %; Eosinophils % (A) 1 %; HCT 43.8 % (39.0-53.0); HGB 15.5 gm/dL (13.0-17.5); Lymphocytes # (A) 0.8 k/uL (1.0-4.8); Lymphocytes % (A) 20 %; MCH 36.4 pg (25.0-35.0); MCHC 35.4 g/dL (31.0-37.0); MCV 102.8 fL (80.0-100.0); Macrocytosis Slight; Mean Platelet Volume 10.3; Monocytes # (A) 0.3 k/uL (0-1.0); Monocytes % (A) 7 %; Neutrophils # (A) 2.8 k/uL (1.3-7.7); Neutrophils % (A) 71 %; Platelet Count 124 k/uL (150-450); RBC 4.26 m/uL (4.30-5.90); RDW 13.8 % (11.5-15.5); WBC 3.9 k/uL (3.8-10.6)
[2021-05-25] MEDS ORDERED: POTASSIUM CHLORIDE ER 20 MEQ TAB.ER PO STA ×2 (04:31)
[2021-05-25] MEDS ORDERED: SODIUM CHLORIDE 0.9% 50 ML IVPB ONE (05:00)
[2021-05-25] MEDS ORDERED: CASIRIVIMAB (REGN10933) (EUA) 600 MG, IMDEVIMAB (REGN10987) (EUA) 600 MG in SODIUM CHLO... IVPB ONE (05:00)
[2021-05-25] MEDS ORDERED: ACET/COD 300 MG/30 MG STARTER PACK 6 TAB BTL PO STA (06:55)
[2021-05-25 07:07] VITALS: BP 128/72; PULSE 78; RESP 16; TEMP 98.8
== END 2021-05-25 07:00 | disposition home or self-care (01) ==
LOC: EC 02:23
DX: U07.1 COVID-19 (principal); I10 Essential (primary) hypertension; J44.9 Chronic obstructive pulmonary disease, unspecified; F17.200 Nicotine dependence, unspecified, uncomplicated
CPT/HCPCS: 99285 ×2; 96375 ×2; 96361 ×2; 36415; 94640; 93005; 83880; 80053; 82728; 83605; 83615; 83735; 85025; 85610; 85730; 86140; 71045; M0243; J1100; J1885; Q0243; 96374

== ENCOUNTER 2024-03-25 01:20 | Observation (INO) | payer BC ==
[~2024-03-25 01:20] MED LIST changes: -ACETAMINOPHEN TAB 500 MG TAB PO ONE; +MAGNESIUM SULFATE-D5W PMX 100 ML IVPB ONE; -MELOXICAM 7.5 MG TAB PO ONE; -TRANEXAMIC ACID 1,000 MG in SODIUM CHLORIDE 0.9% 50 ML IVPB ONE; -ceFAZolin IN SWFI 2 GM/20 ML SYRINGE IVP ONE
[2024-03-25] MEDS ORDERED: REGADENOSON 0.4 MG/5 ML SYRINGE IV ONE (08:00)
[2024-03-25] MEDS ORDERED: TAMSULOSIN 0.4 MG CAP.ER.24H PO ONE (08:43)
[2024-03-25] MEDS ORDERED: lisinopriL 10 MG TAB ONE (08:43)
[2024-03-25] MEDS ORDERED: ASPIRIN 81 MG ONE (08:43)
[2024-03-25] MEDS ORDERED: METOPROLOL SUCCINATE (ER) 50 MG TAB.ER.24H PO ONE (08:43)
[2024-03-25] MEDS ORDERED: MAGNESIUM SULFATE-D5W PMX 100 ML IVPB ONE ×3 (14:19→17:21)
[2024-03-25] MEDS ORDERED: NICOTINE 21MG/24HR PATCH TRANSDERM ONE (17:20)
[2024-03-25] MEDS ORDERED: ATORVASTATIN 80 MG TAB ONE (21:27)
[2024-03-26] MEDS ORDERED: NICOTINE 21MG/24HR PATCH TRANSDERM ONE (09:49)
[2024-03-26] MEDS ORDERED: ASPIRIN 81 MG ONE (09:49)
[2024-03-26] MEDS ORDERED: METOPROLOL SUCCINATE (ER) 50 MG TAB.ER.24H PO ONE (09:50)
[2024-03-26] MEDS ORDERED: lisinopriL 10 MG TAB ONE (09:50)
[2024-03-26] MEDS ORDERED: TAMSULOSIN 0.4 MG CAP.ER.24H PO ONE (09:50)
[2024-03-26] MEDS ORDERED: MAGNESIUM OXIDE 400 MG TAB ONE (13:44)
--- NOTE | 2024-04-16 07:36 | CA ---
Transthoracic Echo Report Name: Pedro Gonzales Age: 63 Gender: M : 1960 Exam Date: 03/25/2024 12:55 Exam Location: [place] [facility] Ht (in): 70 Wt (lb): 162 Ordering Physician: Attending/Referring Phys: Slp Alisson Guadalupe RDCS Procedure CPT: Indications: Chest pain, unspecified Cardiac Hx: Technical Quality: Fair Contrast 1: Total Dose (mL): Contrast 2: Total Dose (mL): MEASUREMENTS (Male / Female) Normal Values 2D ECHO LV Diastolic Diameter PLAX 5.6 cm 4.2 - 5.9 / 3.9 - 5.3 cm LV Systolic Diameter PLAX 3.3 cm IVS Diastolic Thickness 1.0 cm 0.6 - 1.0 / 0.6 - 0.9 cm LVPW Diastolic Thickness 1.0 cm 0.6 - 1.0 / 0.6 - 0.9 cm LV Relative Wall Thickness 0.4 RV Internal Dim ED PLAX 1.5 cm LA Systolic Diameter LX 4.0 cm 3.0 - 4.0 / 2.7 - 3.8 cm LV Diastolic Volume MOD BP 47.9 cm??? 67 - 155 / 56 - 104 cm??? LV Systolic Volume MOD BP 21.5 cm??? 22 - 58 / 19 - 49 cm??? LV Ejection Fraction MOD BP 55.2 % >= 55 % LV Cardiac Index MOD BP 942.7 cm???/min???m??? LV Diastolic Volume MOD 4C 66.4 cm??? LV Systolic Volume MOD 4C 19.9 cm??? LV Ejection Fraction MOD 4C 70.0 % LV Cardiac Index MOD 4C 1657.9 cm???/min???m??? LV Diastolic Length 4C 7.3 cm LV Systolic Length 4C 5.8 cm LV Diastolic Volume MOD 2C 27.8 cm??? LV Systolic Volume MOD 2C 22.9 cm??? LV Ejection Fraction MOD 2C 17.5 % LV Cardiac Index MOD 2C 173.2 cm???/min???m??? LV Diastolic Length 2C 5.8 cm LV Systolic Length 2C 5.7 cm LA Volume 25.2 cm??? 18 - 58 / 22 - 52 cm??? LA Volume Index 13.2 cm???/m??? 16 - 28 cm???/m??? M-MODE Aortic Root Diameter MM 3.6 cm LA Systolic Diameter MM 3.4 cm LA Ao Ratio MM 0.9 AV Cusp Separation MM 1.8 cm DOPPLER MV Area PHT 2.6 cm??? Mitral E Point Velocity 80.6 cm/s Mitral A Point Velocity 86.9 cm/s Mitral E to A Ratio 0.9 MV Deceleration Time 295.9 ms TR Peak Velocity 250.7 cm/s TR Peak Gradient 25.1 mmHg Right Ventricular Systolic Press 29.8 mmHg FINDINGS Left Ventricle Left ventricular ejection fraction is estimated at 55-60%. Normal left ventricular systolic function with no obvious regional wall motion abnormalities. Left ventricular cavity size normal. Left ventricular wall thickness normal. Right Ventricle Moderate right ventricular dilatation. Right ventricular systolic pressure within normal limits. Right Atrium Normal right atrial size. Left Atrium Normal left atrial size. Mitral Valve Mild mitral regurgitation. No mitral stenosis. Calcified chordae Aortic Valve Trileaflet aortic valve. No aortic valve stenosis or regurgitation. Tricuspid Valve Structurally normal tricuspid valve. mild tricuspid regurgitation. No tricuspid stenosis. Pulmonic Valve Structurally normal pulmonic valve. No pulmonic stenosis. Pericardium Echo free space anterior to the right ventricle likely represents a fat pad. Aorta Normal size aortic root and proximal ascending aorta. CONCLUSIONS 1. Normal left ventricular size and systolic function 2. Mild mitral and tricuspid regurgitation Previewed by: Dr. Meliton Dowling MD (Electronically Signed) Final Date: 26 March 2024 07:29
--- NOTE | 2024-04-19 11:19 | XR ---
Pedro Gonzales ID: [id number] : 1960 EXAMINATION TYPE: XR chest 2V DATE OF EXAM: 03/24/2024 COMPARISON: 05/25/2021 HISTORY: 63-year-old male complaining of chest pain, fall 3 weeks ago TECHNIQUE: PA and lateral views FINDINGS: Heart normal size. Aorta and pulmonary vasculature within normal limits. Some strandy atelectasis mid and lower lungs. Hyperinflation. No consolidation or pleural effusion. Anterior endplate spondylosis mid and lower thoracic spine. IMPRESSION: COPD. No acute process seen.
--- NOTE | 2024-04-19 11:19 | XR ---
Pedro Gonzales ID: [id number] : 1960 EXAMINATION TYPE: XR KUB DATE OF EXAM: 03/24/2024 Comparison: None Clinical History: 63-year-old male complaining of epigastric pain with fall 3 weeks ago Findings: No evidence for free intraperitoneal air. Mild to moderate stool burden. No dilated small bowel loops or air-fluid levels. Some possible left-sided renal calculi measuring up to 5 mm. Prominent endplate spondylosis especially left laterally in the mid and lower lumbar spine. Mild degenerative changes l eft hip and partially visualized right total hip arthroplasty. Impression: 1. No evidence for free air or bowel obstruction. 2. Mild to moderate stool burden. 3. There may be underlying left-sided nephrolithiasis measuring up to 5 mm.
--- NOTE | 2024-04-20 13:43 | CA ---
Lexiscan Nuclear Stress Test Report Name: Pedro Gonzales Exam Date: 03/25/2024 12:34 Exam Location: [place] Stress Ht (in): 70 Wt (lb): 162 BSA: 1.91 Ordering Phys: TRESA Referring Phys: DAVID FELICIANO Technologist: Franck Bray Age: 63 Gender: M : 1960 Procedure CPT: Indications: ICD-10 Codes: Patient History: DIFFICULTY IN BREATHING, HTN, PRIOR HEART CATH, HYPERCHOLESTEROLEMIA, FAMILY HX OF HEART DISEASE, CURRENT SMOKER 1 PPD X 20 YEARS Medications: Meds past 24 hrs: Pretest Chest Pain: STRESS TEST Lexiscan Protocol Exercise Duration (min:sec): 02:[address] Depressions (mm): Angina Score: Quiñonez Score: Resting HR (bpm): 55 Peak HR (bpm): 104 Resting BP (mmHg): 99 / 57 Peak BP (mmHg): 110 / 57 MPHR: 158 Target HR: 134 % MPHR: 66 METS: 1.0 Total Dose: Peak Dose: Atropine: Double Product: 21614 BP Response: Stress Termination: INFUSION COMPLETE Stress Symptoms: NO SYMPTOMS Stress Summary: ECG ANALYSIS Resting ECG: Sinus rhythm. Normal conduction. No arrhythmias. Normal repolarization. Stress ECG: No ECG changes from baseline with Lexiscan infusion. CONCLUSIONS No ECG evidence of ischemia with Lexiscan infusion. Nuclear test results to follow. Dr. Meliton Dowling MD (Electronically Signed) Final Date: 26 March 2024 07:22
--- NOTE | 2024-04-21 13:49 | NM ---
EXAMINATION TYPE: NM stress lexiscan cardiolite DATE OF EXAM: 03/25/2024 COMPARISON: NONE CLINICAL INDICATION: Unknown, old with history of ; TECHNIQUE: After the intravenous administration of 10.4 mCi Tc 99m Sestamibi - Cardiolite resting SP ECT images acquired post injection. The patient received 0.4mg Lexiscan, 26.7 mCi Tc 99m Sestamibi - Stress images obtained post injecti on FINDINGS: Review of stress and rest SPECT images demonstrates no distinct perfusion abnormality. Gated analysi s shows normal wall motion with an estimated left ventricular ejection fraction of 59 %. IMPRESSION: No scintigraphic evidence for reversible ischemia.
--- NOTE | 2024-05-18 20:14 | CT ---
EXAM: CT Angiography Chest With Intravenous Contrast CLINICAL HISTORY: R/O PE TECHNIQUE: Axial computed tomographic angiography images of the chest with intravenous contrast. CTDI is 11.8 mGy and DLP is 371.5 mGy-cm. This CT exam was performed using one or more of the following dose reduction techniques: automated exposure control, adjustment of the mA and/or kV according to patient size, and/or use of iterative reconstruction technique. MIP reconstructed images were created and reviewed. COMPARISON: No relevant prior studies available. FINDINGS: Pulmonary arteries:Unremarkable. No pulmonary embolism. Aorta:Atherosclerotic changes of the aorta. No thoracic aortic aneurysm. Lungs:Unremarkable. No mass. No consolidation. Pleural space:Unremarkable. No significant effusion. No pneumothorax. Heart:Unremarkable. No cardiomegaly. No significant pericardial effusion. No evidence of RV dysfunction. Bones/joints:Degenerative changes of the spine. No acute fracture. No dislocation. Soft tissues:Unremarkable. Lymph nodes:Unremarkable. No enlarged lymph nodes. Liver:Hepatic steatosis. Kidneys and ureters: Multiple non shadowing renal stones measuring up to 11 mm in the RIGHT upper pole. IMPRESSION: 1. No pulmonary embolism. 2. Multiple non shadowing renal stones measuring up to 11 mm in the RIGHT upper pole. Radiologist: Franck Jones MD Electronically Signed: 03/25/24 00:16 Study first marked ready to read at 22:40, study last marked ready to read at 22:40, initial results transmitted at 00:16 [facility]
== END 2024-03-26 13:55 | disposition home or self-care (01) ==
LOC: 3SCARD 01:20 → UNDODISOB 01:58
PROVIDERS: ADMIT Internal Medicine; ATTEND Internal Medicine
DX: R07.89 Other chest pain (principal); R06.09 Other forms of dyspnea; I10 Essential (primary) hypertension; E78.5 Hyperlipidemia, unspecified; E83.42 Hypomagnesemia; D69.6 Thrombocytopenia, unspecified; N40.0 Benign prostatic hyperplasia without lower urinary tract symptoms; R42 Dizziness and giddiness; R05.3 Chronic cough; Z79.82 Long term (current) use of aspirin; Z79.899 Other long term (current) drug therapy; Z87.891 Personal history of nicotine dependence
CPT/HCPCS: 71046; 71275; 74018; 78452; 93005; 93017; 93306; 99285

== ENCOUNTER → 2024-11-05 | Outpatient (CLI) | payer BC ==
--- NOTE | 2024-11-05 14:28 | US ---
EXAMINATION TYPE: US kidneys/renal and bladder DATE OF EXAM: 11/05/2024 COMPARISON: NONE CLINICAL INDICATION: Male, 64 years old with history of R31.9 HEMATURIA; hematuria 3 weeks ago TECHNIQUE: Grayscale imaging of the bilateral kidneys and urinary bladder: FINDINGS: EXAM MEASUREMENTS: Right Kidney: 10.2 x 6.2 x 5.9 cm Left Kidney: 9.7 x 7.0 x 4.4 cm Right Kidney: echogenic focus seen mid pole measuring 1.1 x 0.9 x 0.5cm Left Kidney: severe hydronephrosis seen Bladder: diverticulum seen Bilateral Jets seen: right jet seen. Left jet possibly seen, unsure due to diverticulum Suspect nonobstructing right renal calculi. Severe left-sided hydronephrosis. The urinary bladder is anechoic. IMPRESSION: Probable nonobstructing right renal calculi. Severe left-sided hydronephrosis requires ur ology follow-up to further evaluate. [facility], , 11/05/2024 2:25 PM
== END | disposition home or self-care (01) ==
LOC: RADUSWWP 13:26
PROVIDERS: ATTEND Family Medicine
DX: N13.30 Unspecified hydronephrosis (principal); R31.9 Hematuria, unspecified
CPT/HCPCS: 76770

== ENCOUNTER → 2024-11-19 | Outpatient (CLI) | payer BC ==
--- NOTE | 2024-11-19 11:38 | CT ---
EXAMINATION TYPE: CT urogram wo/w con CT DLP: 3413 mGycm, Automated exposure control for dose reduction was used. DATE OF EXAM: 11/19/2024 10:01 AM COMPARISON: Renal ultrasound 11/05/2024, 03/06/2016 CLINICAL INDICATION:Male, 64 years old with history of R31.0 GROSS HEMATURIA N13.30 HYDRONEPHROSIS; PHH, HEMATURIA X 6 WEEKS AGO FOR 1 WEEK, LEFT LUMBAR PAIN, HX OF RENAL STONES TECHNIQUE: Urogram of the abdomen and pelvis was performed before and after the administration of 100 cc of IV c ontrast Isovue 300 contrast. Delayed imaging was performed. Coronal and sagittal reformats were perfo rmed. One or more CT dose reduction strategies were utilized during this examination. 2D and 3D recon structions are performed to assist visualization of the urinary tract on a separate workstation. FINDINGS: GENITOURINARY: RIGHT KIDNEY AND URETER: Approximately 5 nonobstructive right renal calculi measuring up to 8 mm. No hydronephrosis or hydroureter. Right mid kidney 1.2 cm simple cyst. No suspicious enhancing renal mas s. No urothelial lesions: no filling defect, dilation, stricture or wall thickening. LEFT KIDNEY AND URETER: Large 1.4 x 1.2 x 1.3 cm calculus within the distal right ureter just at the ureterovesical junction (series 3, image 112). There are 2 additional adjacent calculi identified wit hin the proximal left ureter past the ureteropelvic junction measuring 1.9 x 1.3 x 1.5 cm and the oth er measuring 0.3 cm (series 3, image 80). Results in severe left hydroureteronephrosis. 2 additional nonobstructive left renal calculi with largest measuring up to 4 mm. No renal mass or other lesions. No contrast is demonstrated within the left collecting system throughout the exam which limits evalua tion of the ureter. There are regions of circumferential wall thickening of the left ureter with some fat stranding. URINARY BLADDER: Bilateral posterior wall urinary bladder broad-based diverticulum. No calculi, mass or other lesions. REPRODUCTIVE: Central prostate coarse calcification. Bilateral vasectomy clips. ABDOMEN LIVER: Unremarkable. GALLBLADDER AND BILE DUCTS: Unremarkable PANCREAS: Unremarkable. SPLEEN: Unremarkable. ADRENAL GLANDS: Unremarkable. STOMACH AND BOWEL: Unremarkable. The appendix is within normal limits. No evidence of bowel obstructi on. PERITONEUM: No evidence of pneumoperitoneum, free fluid, or adenopathy. VASCULATURE: Moderate atherosclerotic calcifications are present throughout the abdominal aorta and i ts branches. No abdominal aortic aneurysm. MUSCULOSKELETAL: Multilevel degenerative changes are present throughout the thoracolumbar spine. Righ t hip arthroplasty change. SOFT TISSUE/ABDOMINAL WALL: Tiny fat filled umbilical hernia. LOWER CHEST: The visualized lung bases are clear. Coronary artery calcifications.. IMPRESSION: 1. Severe left hydroureteronephrosis with an obstructing 1.4 cm calculus near the ureterovesical junc tion. There are 2 additional adjacent calculi within the proximal left ureter measuring up to 1.9 cm. Urology consultation is recommended. Associated inflammatory thickening of the left ureteral wall. N o contrast is demonstrated within the left ureter during the course exam which limits evaluation. 2. Multiple nonobstructive bilateral renal calculi. 3. No suspicious enhancing renal lesion. No visualized suspicious lesion within the urinary bladder o r right ureter. 4. Posterior urinary bladder diverticula. [facility], , 11/19/2024 11:36 AM
== END | disposition home or self-care (01) ==
LOC: RADCTMAIN 08:24
PROVIDERS: ATTEND Urology
DX: N13.2 Hydronephrosis with renal and ureteral calculous obstruction (principal); R31.0 Gross hematuria; N32.3 Diverticulum of bladder
CPT/HCPCS: 74178; 74400; Q9967

== ENCOUNTER → 2024-11-22 | Outpatient (CLI) | payer BC ==
[2024-11-22 16:24] LABS: Appearance,Urine Cloudy (Clear); Bilirubin,Urine Negative (Negative); Blood,Urine Large (Negative); Color,Urine Light Red; Glucose,Urine (UA) Negative (Negative); Ketones,Urine Negative (Negative); Leukocyte Esterase,Urine Negative (Negative); Nitrite,Urine Negative (Negative); Protein,Urine Trace (Negative); RBC,Urine >182 /hpf (0-5); Specific Gravity,Urine 1.018 (1.001-1.035); Urobilinogen,Urine <2.0 mg/dL (<2.0); WBC,Urine 59 /hpf (0-5)
[2024-11-22 18:32] LABS: Basophils # (A) 0.07 X 10*3/uL (0.00-0.10); Eosinophils # (A) 0.41 X 10*3/uL (0.04-0.35); Eosinophils % (A) 5.8 %; HCT 40.2 % (39.6-50.0); HGB 13.1 g/dL (13.0-17.0); Lymphocytes # (A) 1.71 X 10*3/uL (0.90-5.00); Lymphocytes % (A) 24.4 %; MCH 33.7 pg (27.0-32.0); MCHC 32.6 g/dL (32.0-37.0); MCV 103.3 FL (80.0-97.0); Mean Platelet Volume 11.3 FL (9.5-12.2); Monocytes # (A) 0.74 X 10*3/uL (0.20-1.00); Monocytes % (A) 10.6 %; NRBC Per 100 WBC 0 X 10*3/uL (0.00-0.01); Neutrophils # (A) 4.06 X 10*3/uL (1.80-7.70); Neutrophils % (A) 57.9 %; Platelet Count 175 X 10*3/uL (140-440); RBC 3.89 X 10*6/uL (4.40-5.60); RDW 11.9 % (11.5-14.5); WBC 7.01 X 10*3/uL (4.50-10.00)
[2024-11-22 18:48] LABS: BUN/Creat Ratio 13.38 Ratio (12.00-20.00); Blood Urea Nitrogen 17.4 mg/dL (9.0-27.0); Calcium 9.1 mg/dL (8.7-10.3); Chloride 104 mmol/L (96-109); Glucose 73 mg/dL (70-110); Potassium 4.5 mmol/L (3.5-5.5); Sodium 140 mmol/L (135-145)
== END | disposition home or self-care (01) ==
LOC: LABPAT 15:00
PROVIDERS: ATTEND Urology
DX: Z01.812 Encounter for preprocedural laboratory examination (principal); N20.2 Calculus of kidney with calculus of ureter
CPT/HCPCS: 80048; 81001; 85025; 87086

== ENCOUNTER 2024-11-30 12:21 | Day surgery (SDC) | payer BC ==
[2024-11-25 11:50] VITALS: BMI 25.4
--- NOTE | 2024-11-30 08:45 | P.HPIHPCON ---
History of Present Illness H&P Date: 11/30/24 Chief Complaint: Left ureteral stone, right renal stones This is a 64-year-old male with a history of 1.4 cm left-sided distal ureteral stone, and a 2 cm left UPJ stone. Also has multiple right-sided renal stones largest is 8 mm. Discussed with him the option of a left-sided ureteroscopy and holmium laser for the distal stone, but did discuss he will eventually require a left PCNL to address the proximal stone. Of note he also would like to address his right-sided renal stone in the same setting. Option of bilateral ureteroscopy with holmium laser was discussed. He is aware of the risk which include but not limited to bleeding, infection, injury to the ureter Consent for Procedure: I have explained the operation/procedure to the patient, including the risks, benefits, side effects, alternative therapies (including not receiving the proposed treatment or service), the likelihood of the patient achieving his/her goals, and potential recuperation problems for the procedure/sedation/analgesia, as well as any blood products, if indicated. I also explained to the patient the risks, benefits and side effects of the alternatives, as well as the risks related to not receiving the proposed procedure, care, treatment, or services. Past Medical History Past Medical History: Hypertension, Osteoarthritis (OA) Additional Past Medical History / Comment(s): Kidney stones. History of Any Multi-Drug Resistant Organisms: None Reported Past Surgical History: Heart Catheterization, Joint Replacement, Orthopedic S urgery Additional Past Surgical History / Comment(s): COLONOSCOPY. rt hip replaced. Past Anesthesia/Blood Transfusion Reactions: No Reported Reaction Smoking Status: Current every day smoker - Past Family History Father Family Medical History: Cancer Mother Family Medical History: Congestive Heart Failure (CHF) Medications and Allergies Home Medications Medication Instructions Recorded Confirmed Type Aspirin 325 mg PO BID #60 tab 12/23/17 11/25/24 Rx Ezetimibe [Zetia] 10 mg PO HS 11/25/24 11/25/24 History Metoprolol Succinate (ER) [Toprol 10 mg PO HS 11/25/24 11/25/24 History Xl] Vitamin B(Unonwn Dose) 1 dose PO QAM 11/25/24 11/25/24 History Allergies Allergy/AdvReac Type Severity Reaction Status Date / Time No Known Allergies Allergy Verified 11/25/24 11:38 Surgical - Exam - General no distress, moderate pain - Eyes normal ocular movement, no pale - ENT normal nares, normal mucosa - Respiratory normal expansion, normal respiratory effort - Abdomen Abdomen: soft, non tender - Psychiatric oriented to time, oriented to person, oriented to place Assessment and Plan Assessment: OR for bilateral ureteroscopy, manage lithotripsy, stone basketing and stent insertion
[~2024-11-30 12:21] MED LIST changes: +HYDROmorphone 0.5 MG/0.5 ML SYRINGE IVP PRN; +LIDOCAINE 1% (10MG/ML) FOR IV START INTRADERMA PRN; -MAGNESIUM SULFATE-D5W PMX 100 ML IVPB ONE; +MIDAZOLAM 2 MG/2 ML VIAL IV PRN; +fentaNYL (PF) 50 MCG/ML 2 ML AMP IVP PRN
--- NOTE | 2024-11-30 12:46 | XR ---
EXAMINATION TYPE: XR KUB DATE OF EXAM: 11/30/2024 12:36 PM COMPARISON: CT 11/19/2024 CLINICAL INDICATION: Male, 64 years old with history of presurgical for Cystoscopy/Lithotripsy; PHH, pain TECHNIQUE: One radiographic view of the abdomen was obtained. FINDINGS: Scattered moderate right-sided abdomen. Underlying right-sided nephrolithiasis with calcifi cations measuring up to 1 cm. Metastatic calcifications throughout the abdominal aorta and iliac mahendra amos. A large ovoid calcification in the left side of the pelvis measures 2.1 x 1.4 cm. A second one in the upper left pelvis measuring 2.1 x 1.3 cm. Etiology is unclear. Nonobstructive bowel gas patter n. Mild to moderate degenerative change left hip. Previous right hip total arthroplasty. IMPRESSION: 1. Right-sided nephrolithiasis with calculi measuring up to 1 cm. 2. A couple 2.1 cm oval stones within the distal left ureter. The more superior calculus shows some p rogressive migration compared to 11/19/2024. The more inferior stone location is similar. [facility], Workstation: [email or web address], 11/30/2024 12:43 PM
[2024-11-30] MEDS: IV FLUID CONTINUATION 1,000 ML IV ONE ×2 (13:01→16:18)
[2024-11-30] MEDS: LACTATED RINGERS 1,000 ML IV SCH (13:11)
[2024-11-30] MEDS: ONDANSETRON 4 MG/2 ML VIAL IVP ONE (13:13)
[2024-11-30] MEDS: DEXAMETHASONE SOD PHOSPHATE 4 MG/ML 1 ML VIAL IV ONE (13:13)
[2024-11-30] MEDS ORDERED: LIDOCAINE 1% INJ 10MG/ML (20 ML MDV) ONE (14:30)
[2024-11-30] MEDS ORDERED: HYDROmorphone (PF) 1 MG/ML ONE (14:30)
[2024-11-30] MEDS ORDERED: PROPOFOL 10 MG/ML 20 ML VIAL IV ONE (14:30)
[2024-11-30] MEDS ORDERED: MIDAZOLAM 2 MG/2 ML VIAL ONE (14:30)
[2024-11-30] MEDS ORDERED: fentaNYL (PF) 50 MCG/ML 2 ML AMP ONE (14:30)
[2024-11-30] MEDS: ceFAZolin 2 GM in DEXTROSE 5% IN WATER 50 ML IVPB PRN (14:35)
--- NOTE | 2024-11-30 16:49 | FL ---
EXAMINATION TYPE: FL guidance operating room Intraoperative/procedural fluoroscopic services were pro vided. CLINICAL INDICATION:Male, 64 years old with history of Cysto for left kidney stone; , [facility] FINDINGS: Fluoroscopic imaging demonstrating cystogram for left kidney stone. No radiographic evidence for comp lication. Total fluoroscopy time is 40.6 seconds. DAP: 0.87638 Gycm2 Please see the operative/procedural note for further details. [facility], , 11/30/2024 4:47 PM
[2024-11-30 17:00] VITALS: TEMP 97
--- NOTE | 2024-11-30 17:10 | P.OP ---
Date of Procedure: 11/30/24 Preoperative Diagnosis: Left ureteral, right renal stone Postoperative Diagnosis: Same Procedure(s) Performed: Cystoscopy, bilateral ureteroscopy, holmium laser lithotripsy, stone basketing and stent insertion Implants: 6 Swazi by 26 cm stents in the bilateral ureters Anesthesia: BRIGHT Surgeon: Mitchell Romero Estimated Blood Loss (ml): 20 Pathology: other (Right renal, left ureteral stone) Condition: stable Disposition: PACU Indications for Procedure: This is a 64-year-old male with a history of 1.4 cm left-sided distal ureteral stone, and a 2 cm left UPJ stone. Also has multiple right-sided renal stones largest is 8 mm. Discussed with him the option of a left-sided ureteroscopy and holmium laser for the distal stone, but did discuss he will eventually require a left PCNL to address the proximal stone. Of note he also would like to address his right-sided renal stone in the same setting. Option of bilateral ureteroscopy with holmium laser was discussed. He is aware of the risk which include but not limited to bleeding, infection, injury to the ureter Operative Findings: 2 large impacted distal ureteral stones on the left side, multiple right-sided renal stones Description of Procedure: Patient brought to the operating room, general anesthesia was induced. He was prepped and draped sterile fashion placed in dorsolithotomy position. Cystoscopy through the 21 Swazi sheath was inserted per urethra, cystoscopy was performed which showed a occlusive prostate with evidence of moderate bladder trabeculation. There were no abnormalities within the bladder. Left ureteral orifice was identified a semirigid ureteroscope was inserted and advanced up the left ureteral orifice, at this point a large impacted stone was seen in the distal ureter. Using the holmium laser I fragmented the stone, intermittent stone basketing was performed in order to better visualize the stone, of note I was unable to completely fragment the distal stone given some backbleeding from the ureteral mucosa. At this time decision was made to proceed with a stent insertion, I initially attempted to advance a sensor wire past the more proximal stone but resistance was met, this point I switched to a Glidewire, and I was able to navigate the Glidewire past the stone and into the kidney, of note this the more proximal stone was even larger than the distal stone and based on the difficulty with wire placement appears to be more impacted. At this time the ureteroscope was withdrawn with the wire in place, the cystoscope was backloaded over the wire, I advanced a ureteral stent over the wire and into the kidney with the return of hydronephrotic drip. The proximal curl of the stent was seen on fluoroscopy and the distal curl was seen using the cystoscope. At this time attention was carried to the right side which was intubated with a sensor wire, the wire was advanced under fluoroscopy into the kidney. Next under fluoroscopy an 1113 Swazi access sheath was passed over the wire and into the proximal ureter. The flexible ureteroscope was inserted through the access sheath, renoscopy was performed which showed multiple stones throughout the calyces, using the holmium laser the stones were dusted, any sizable fragments were removed using a stone basket. Repeat renoscopy showed no sizable fragments or injury to the kidney, on fluoroscopy there was no radiopaque density seen. Pullback ureteroscopy was performed which showed no injury to the ureter or any ureteral stones, as ureteroscope was withdrawn a sensor wire was advanced through. Next a ureteral stent was passed over the wire, the proximal curl was visualized on fluoroscopy and the distal curl was visualized using cystoscope. The bladder was emptied at the end of the case. Patient tolerated procedure was taken recovery in stable condition, he will follow-up in 1 to 2 weeks for a left-sided PCNL and bilateral stent removal
[2024-11-30 18:10] VITALS: BP 144/89; PULSE 65; RESP 16
== END 2024-11-30 18:43 | disposition home or self-care (01) ==
LOC: OR 12:21
PROVIDERS: ATTEND Urology
DX: N20.2 Calculus of kidney with calculus of ureter (principal); I10 Essential (primary) hypertension; M19.90 Unspecified osteoarthritis, unspecified site; F17.200 Nicotine dependence, unspecified, uncomplicated; Z79.82 Long term (current) use of aspirin; Z87.442 Personal history of urinary calculi; Z96.641 Presence of right artificial hip joint
CPT/HCPCS: 82365; 74018; 52356; C1769; J2250; J1100; J0690; J2405; J2003; J3010; J1171; J2704

== ENCOUNTER → 2024-12-08 | Outpatient (CLI) | payer BC ==
[2024-12-08 15:39] LABS: Appearance,Urine Cloudy (Clear); Bilirubin,Urine Negative (Negative); Blood,Urine Large (Negative); Color,Urine Light Red; Glucose,Urine (UA) Negative (Negative); Ketones,Urine Negative (Negative); Leukocyte Esterase,Urine Moderate (Negative); Nitrite,Urine Negative (Negative); Protein,Urine 2+ (Negative); RBC,Urine >182 /hpf (0-5); Specific Gravity,Urine 1.016 (1.001-1.035); Urobilinogen,Urine <2.0 mg/dL (<2.0); WBC,Urine 161 /hpf (0-5)
[2024-12-08 19:11] LABS: BUN/Creat Ratio 35.78 Ratio (12.00-20.00); Blood Urea Nitrogen 82.3 mg/dL (9.0-27.0); Calcium 9.9 mg/dL (8.7-10.3); Carbon Dioxide 19.9 mmol/L (21.6-31.8); Chloride 105 mmol/L (96-109); Glucose 98 mg/dL (70-110); Potassium 5.5 mmol/L (3.5-5.5); Sodium 141 mmol/L (135-145)
== END | disposition home or self-care (01) ==
LOC: LABWHC1 14:20
PROVIDERS: ATTEND Urology
DX: Z01.812 Encounter for preprocedural laboratory examination (principal); N20.1 Calculus of ureter
CPT/HCPCS: 36415; 80048; 81001; 86850; 86900; 86901; 87086

== ENCOUNTER 2024-12-14 06:01 | Day surgery (SDC) | payer BC ==
[2024-12-08 10:02] VITALS: BMI 25.7
--- NOTE | 2024-12-13 20:37 | P.HPIHPCON ---
History of Present Illness H&P Date: 12/13/24 Chief Complaint: Left ureteral stone This is a 64-year-old male with a history of a 2.1 cm left-sided mid ureteral stone and a 1.4 cm left-sided distal stone. He underwent left-sided ureteroscopy with holmium laser of the distal stone on November 30. At that time the stone could be only partially fragmented given the density of the and the degree of impaction. Discussed with him given the size of the more proximal stone I do recommend proceeding with an antegrade approach with left-sided PCNL at the same time we will address the residual distal stone. Discussed the risk which include but not limited to bleeding, infection, injury to the ureter. Discussed also potential injury to nearby organs. He understood all the risk and agreed to proceed Consent for Procedure: I have explained the operation/procedure to the patient, including the risks, benefits, side effects, alternative therapies (including not receiving the proposed treatment or service), the likelihood of the patient achieving his/her goals, and potential recuperation problems for the procedure/sedation/analgesia, as well as any blood products, if indicated. I also explained to the patient the risks, benefits and side effects of the alternatives, as well as the risks r elated to not receiving the proposed procedure, care, treatment, or services. Past Medical History Past Medical History: Hypertension, Osteoarthritis (OA) Additional Past Medical History / Comment(s): Kidney stones. History of Any Multi-Drug Resistant Organisms: None Reported Past Surgical History: Heart Catheterization, Joint Replacement, Orthopedic Surgery Additional Past Surgical History / Comment(s): COLONOSCOPY, right hip replacement, procedure for kidney stones. Past Anesthesia/Blood Transfusion Reactions: No Reported Reaction Past Psychological History: No Psychological Hx Reported Smoking Status: Current every day smoker Past Alcohol Use History: None Reported Additional Past Alcohol Use History / Comment(s): HAS SMOKED < 1PPD OFF AND ON FOR PAST 20 YEARS. Past Drug Use History: None Reported - Past Family History Father Family Medical History: Cancer Mother Family Medical History: Congestive Heart Failure (CHF) Medications and Allergies Home Medications Medication Instructions Recorded Confirmed Type Aspirin 325 mg PO BID #60 tab 12/23/17 12/08/24 Rx Ezetimibe [Zetia] 10 mg PO HS 11/25/24 12/08/24 History Metoprolol Succinate (ER) [Toprol 10 mg PO PC-SUPPER 11/25/24 12/08/24 History Xl] Vitamin B(Unonwn Dose) 1 dose PO QAM 11/25/24 12/08/24 History Allergies Allergy/AdvReac Type Severity Reaction Status Date / Time No Known Allergies Allergy Verified 12/08/24 09:58 Surgical - Exam - General no distress, moderate pain - Eyes normal ocular movement, no pale - Respiratory normal expansion, normal respiratory effort - Abdomen Abdomen: soft, non tender, no distended - Psychiatric oriented to time, oriented to person, oriented to place Assessment and Plan Assessment: OR for Left PCNL
[~2024-12-14 06:01] MED LIST changes: -HYDROmorphone 0.5 MG/0.5 ML SYRINGE IVP PRN; -MIDAZOLAM 2 MG/2 ML VIAL IV PRN; -fentaNYL (PF) 50 MCG/ML 2 ML AMP IVP PRN
--- NOTE | 2024-12-14 06:41 | XR ---
EXAMINATION TYPE: XR KUB DATE OF EXAM: 12/14/2024 6:15 AM CLINICAL INDICATION: Male, 64 years old with history of N20.1 left ureteral stone, pain TECHNIQUE: 1 view of the abdomen. COMPARISON: Abdominal x-ray November 30, 2024. FINDINGS: There are now bilateral double-J ureter stents. Prior larger right renal calculi less well- seen on today's study. Persistent 2-3 distal left ureter calculi measuring up to 2.0 cm in size. Metallic hardware from right hip arthroplasty is redemonstrated. Overall nonobstructive bowel gas pat tern. Lung bases are clear. IMPRESSION: As above. [facility], , 12/14/2024 6:39 AM
[2024-12-14] MEDS: ONDANSETRON 4 MG/2 ML VIAL IVP ONE (07:08)
[2024-12-14] MEDS: DEXAMETHASONE SOD PHOSPHATE 4 MG/ML 1 ML VIAL IV ONE (07:08)
[2024-12-14] MEDS: FAMOTIDINE 20 MG/2 ML VIAL IV STA (07:09)
[2024-12-14] MEDS: LACTATED RINGERS 1,000 ML IV SCH (07:09)
[2024-12-14] MEDS: IV FLUID CONTINUATION 1,000 ML IV ONE ×2 (07:10→10:09)
[2024-12-14] MEDS ORDERED: NEOSTIGMINE 1 MG/ML 10 ML VIAL ONE (07:32)
[2024-12-14] MEDS ORDERED: fentaNYL (PF) 50 MCG/ML 2 ML AMP ONE (07:32)
[2024-12-14] MEDS ORDERED: SUCCINYLCHOLINE CHLORIDE 200 MG/10 ML VIAL IV ONE (07:32)
[2024-12-14] MEDS ORDERED: LIDOCAINE 1% INJ 10MG/ML (20 ML MDV) ONE (07:32)
[2024-12-14] MEDS ORDERED: ROCURONIUM 10 MG/ML (5 ML VIAL) IV ONE (07:32)
[2024-12-14] MEDS ORDERED: PROPOFOL 10 MG/ML 20 ML VIAL IV ONE (07:32)
[2024-12-14] MEDS ORDERED: GLYCOPYRROLATE 0.2 MG/ML 2 ML VIAL ONE (07:32)
[2024-12-14] MEDS ORDERED: MIDAZOLAM 2 MG/2 ML VIAL ONE (07:32)
[2024-12-14] MEDS: ceFAZolin 2 GM in DEXTROSE 5% IN WATER 50 ML IVPB PRN (07:35)
--- NOTE | 2024-12-14 09:27 | P.OP ---
Date of Procedure: 12/14/24 Preoperative Diagnosis: Ureteral stones large, left Postoperative Diagnosis: Same Procedure(s) Performed: Percutaneous nephrostomy access left Anesthesia: BRIGHT Surgeon: Rivas Santacruz [employer] Production Team Member #1: Mitchell Romero Estimated Blood Loss (ml): 0 Pathology: none sent Indications for Procedure: The patient has 3 large left ureteral stones. He has failed retrograde manipulation by . He plans to do an antegrade approach and has asked me to perform percutaneous access for this procedure Description of Procedure: Patient has been brought to the operating room and given a general anesthetic. Dr. Romero has placed the occluding balloon catheter on the left side. The patient is in a prone position with a sterile prep and drape. The left collecting system was outlined with air injected through the ureteral catheter. An upper pole calyx will be approached. The Chiba needle is introduced in the left upper pole calyx. Through the Chiba needle I then advanced the Stickney mandrel wire into the left proximal ureter. Over the Stickney mandrel wire I then advanced a 6 Kazakh dilating catheter. The inner catheters were removed and then I passed an 035 Super Stiff wire down the ureter. Over the Super Stiff wire I then passed an 8 and 10 exchange ureteral catheters into the left ureter. The inner catheter is removed and a safety wire is passed down the ureter. I then dilate the tract with the nephrostomy tract dilating balloon to 30 Kazakh and the working sheath is passed over the balloon into the collecting system.
[2024-12-14] MEDS: IOPAMIDOL-370 100ML BTL MISCELLANE ONE (10:13)
[2024-12-14] MEDS ORDERED: MAG HYDROX/AL HYDROX/SIMETH 30 ML CUP PO PRN (10:33)
[2024-12-14] MEDS ORDERED: ONDANSETRON 4 MG/2 ML VIAL IVP PRN (10:33)
[2024-12-14] MEDS ORDERED: ACETAMINOPHEN TAB 325 MG TAB PO PRN (10:33)
[2024-12-14] MEDS: HYDROmorphone 0.5 MG/0.5 ML SYRINGE IVP PRN (10:48)
--- NOTE | 2024-12-14 11:00 | FL ---
EXAMINATION TYPE: FL Perc Nephrostomy New Access DATE OF EXAM: 12/14/2024 FLUOROSCOPY LEFT RENAL CALCULI WHICH WAS LASERED AND REMOVED THRU A PERC NEPHRO. FL TIME 309.[address] LEON AND BRENDAN 11 images are submitted. [facility], Workstation: [id number], 12/14/2024 10:57 AM
--- NOTE | 2024-12-14 11:01 | P.OP ---
Date of Procedure: 12/14/24 Preoperative Diagnosis: Left ureteral stone Postoperative Diagnosis: Same Procedure(s) Performed: Cystoscopy, bilateral stent removals, left ureteral catheterization, left PCNL(>2.0 cm stone) Implants: none Anesthesia: LISSAA Surgeon: Mitchell Romero Estimated Blood Loss (ml): 75 Pathology: other (Left ureteral stone) Condition: stable Disposition: PACU Indications for Procedure: This is a 64-year-old male with a history of a 2.1 cm left-sided mid ureteral stone and a 1.4 cm left-sided distal stone. He underwent left-sided ureteroscopy with holmium laser of the distal stone on November 30. At that time the stone could be only partially fragmented given the density of the and the degree of impaction. Discussed with him given the size of the more proximal stone I do recommend proceeding with an antegrade approach with left-sided PCNL at the same time we will address the residual distal stone. Discussed the risk which include but not limited to bleeding, infection, injury to the ureter. Discussed also potential injury to nearby organs. He understood all the risk and agreed to proceed Operative Findings: Large dense left-sided distal ureteral stone Description of Procedure: Patient brought the operating, general anesthesia was induced. He was prepped and draped in sterile fashion and placed in a frog-leg position on the stretcher. Next a cystoscope fitted through the 21 [place] sheath was inserted per urethra, the right stent was visualized and grasped and removed intact. At the this time the cystoscope was reinserted and the left ureteral stent was grasped and removed to the meatus, the sensor was advanced through the stent and the stent was removed with the wire in place. Next a balloon occlusion catheter was passed over the wire and into the proximal ureter. At this point a 16 [place] Somers catheter was placed and secured to the catheter. Next the patient was placed in prone position and all pressure points were padded, the left flank was prepped and draped in sterile early. Next access was obtained to the upper pole by Dr. Santacruz. After the 2 wires were down the ureter at this time a 30 [place] NephroMax balloon was advanced over the wire and the tract was dilated to 30 [place], the access sheath was passed over the wire, next the flexible cystoscope was inserted through the access sheath, renoscopy was performed showed no stones within the kidney. At this time the cystoscope was advanced down the ureter and a large dense stone was encountered at the level of the distal ureter. Using the holmium laser the stone was fragmented, stone fragments were removed using the stone basket and removed in the an antegrade fashion, after all the stone was fragmented at this point additional fragments were encountered more distally, I was able to remove those fragments using the stone basket. Complete evaluation of the ureter showed no injury to the ureter or any abnormality along the course of the ureter, there was no sizable fragments observed, at this point a wire was advanced through the cystoscope and the cystoscope was withdrawn with the wire in place. Next I passed a flexible ureteroscope over the wire and into the distal ureter, I was able to advance the flexible ureteroscope all the way into the bladder which showed no additional stones, pullback ureteroscopy was performed showed no injury to the ureter or any sizable fragments, at this point a 10 [place] nephrostomy tube was advanced over the wire and into the renal pelvis, antegrade nephrostogram was performed showed contrast going down the ureter and no evidence of contrast extravasation. The sheath was removed with a nephrostomy tube in place. Next the medial aspect of the incision was closed using 2-0 Vicryl and the lateral aspect was closed using 2-0 silk the nephrostomy tube was secured to the skin using a 2-0 silk. Sterile dressing was applied. Patient was awakened from anesthesia and taken to recovery in stable condition
[2024-12-14] MEDS: droPERidol 2.5 MG/ML VIAL IVP ONE (12:38)
[2024-12-14] MEDS: HYDROmorphone 1 MG/ML 1 ML SYRINGE IVP PRN (13:20)
[2024-12-14] MEDS: KETOROLAC 15 MG/ML 1 ML VIAL IVP SCH (17:41)
[2024-12-14] MEDS: DEXTROSE 5%-0.45% NACL 1,000 ML IV SCH (17:41)
[2024-12-14] MEDS: HEPARIN SODIUM,PORCINE 5,000 UNIT/ML 1 ML VIAL SQ SCH (17:41)
[2024-12-14] MEDS: METOPROLOL SUCCINATE (ER) 25 MG TAB.ER.24H PO SCH (17:41)
[2024-12-14 20:23] VITALS: RESP 16
[2024-12-14] MEDS: EZETIMIBE 10 MG TAB PO SCH (21:00)
[2024-12-15 08:07] VITALS: BP 105/51; PULSE 63; TEMP 98.3
[2024-12-15] MEDS: HYDROcodone/APAP 5-325MG 1 EACH TAB PO PRN (09:44)
--- NOTE | 2024-12-15 12:26 | P.DS ---
Providers Expected date of discharge: 12/15/24 Attending physician: Mitchell Romero MD Primary care physician: [facility] Course: On the day of admission, the patient underwent an uncomplicated left PCNL to remove his left distal ureteral calculus. The perioperative course was unremarkable. The patient remained afebrile with stable vital signs. On the first postoperative day, he reported lower back discomfort as well as suprapubic discomfort, but indicated that it was mild in severity. Both the left nephrostomy tube and Somers catheter were draining bloody urine without clots. The Somers catheter was removed, and arrangements were made for the patient to be discharged home with the nephrostomy tube. Procedures: Left percutaneous nephrolithotomy (PCNL) on December 14, 2024. Patient Condition at Discharge: Good Plan - Discharge Summary Discharge Rx Participant: Yes New Discharge Prescriptions: New HYDROcodone/APAP 5-325MG [[place] 5-325] 1 - 2 tab PO Q4HR PRN #10 tab PRN Reason: Pain No Action Aspirin 325 mg PO BID #60 tab Ezetimibe [Zetia] 10 mg PO PC-SUPPER Thiamine [Vitamin B-1] 100 mg PO DAILY Metoprolol Succinate (ER) [Toprol Xl] 25 mg PO PC-SUPPER Discharge Medication List Aspirin 325 mg PO BID #60 tab 12/23/17 [Rx] Ezetimibe [Zetia] 10 mg PO PC-SUPPER 11/25/24 [History] Metoprolol Succinate (ER) [Toprol Xl] 25 mg PO PC-SUPPER 11/25/24 [History] Thiamine [Vitamin B-1] 100 mg PO DAILY 12/14/24 [History] HYDROcodone/APAP 5-325MG [[place] 5-325] 1 - 2 tab PO Q4HR PRN #10 tab 12/15/24 [Rx] Follow up Appointment(s)/Referral(s): Mitchell Romero MD [STAFF PHYSICIAN] - 1 Week Activity/Diet/Wound Care/Special Instructions: Discharge home with left nephrostomy tube to gravity drainage. Drink plenty of fluids. Hold aspirin for 48 hours. Avoid strenuous activity. Discharge Disposition: HOME SELF-CARE
== END 2024-12-15 15:36 | disposition home or self-care (01) ==
LOC: OR 06:01 → 4SSUR 10:16 → OR 12-15 15:36
PROVIDERS: ATTEND Urology
DX: N20.1 Calculus of ureter (principal); I10 Essential (primary) hypertension; M19.90 Unspecified osteoarthritis, unspecified site; F17.210 Nicotine dependence, cigarettes, uncomplicated; Z87.442 Personal history of urinary calculi; Z82.49 Family history of ischemic heart disease and other diseases of the circulatory system; Z96.641 Presence of right artificial hip joint; Z79.82 Long term (current) use of aspirin; Z79.899 Other long term (current) drug therapy
CPT/HCPCS: 82365; 50432; 74018; 50081; 52310; C2628; C1769 ×4; C1729 ×2; C1894; J1644 ×2; J1100; J0690; J2405; J1171 ×2; J1885 ×2; Q9967; J1308

== ENCOUNTER → 2025-02-08 | Outpatient (CLI) | payer BC ==
--- NOTE | 2025-02-08 15:21 | US ---
EXAMINATION TYPE: US kidneys/renal and bladder DATE OF EXAM: 02/08/2025 COMPARISON: Ultrasound. CLINICAL INDICATION: Male, 64 years old with history of R20.0 CALCULUS OF KIDNEY; bilateral stones we re recently surgically removed, still having on and off left sided pain TECHNIQUE: Grayscale imaging of the bilateral kidneys and urinary bladder: FINDINGS: EXAM MEASUREMENTS: Right Kidney: 10.6 x 6.1 x 5.1 cm Left Kidney: 9.1 x 3.6 x 4.6 cm Right Kidney: No hydronephrosis or masses seen Left Kidney: No hydronephrosis or masses seen Bladder: wnl, diverticulum seen There is no evidence for hydronephrosis at this point in time. No nephrolithiasis is seen. No rony s are identified. The urinary bladder is anechoic. IMPRESSION: No evidence for acute process. No obstructive uropathy or renal calculus. [facility], , 02/08/2025 3:18 PM
== END | disposition home or self-care (01) ==
LOC: RADUSWWP 14:27
PROVIDERS: ATTEND Urology
DX: N20.0 Calculus of kidney (principal)
CPT/HCPCS: 76770